=== PATIENT | female | born 1995 | race Caucasian/White ===

== ENCOUNTER 2017-03-20 19:22 | Emergency (ER) | payer OTHER ==
[~2017-03-20] VITALS: Ht 170.2 cm; Wt 99.8 kg
--- NOTE | ~2017-03-20 | CR20 ---
[facility] A Service of [facility] & [facility] RADIOLOGY TEXT RESULTS PATIENT: VIRIDIANA BORJAS LOCATION: SED : [birth year] UNIT #: [id number] AGE: [address]: Betsey Eugene SEX: F ORDER DR: [id number] [address] [address] [id number] E MR#: [id number] Acc #: [id number] NAME: VIRIDIANA BORJAS : 1995 SEX: F STUDY DATE/TIME: 03/20/2017 20:35 UNIT: SED ROOM: STUDY DESCRIPTION: CR Ankle Min 3 Views Lt Attending Physician: Betsey Eugene Pa-C Ordering Physician: Francheska Osborn M.D. Primary Care Physician: Artur Duval M.D. MEDICAL IMAGING REPORT This report is preliminary unless electronic signature is present. EXAM Left ankle, 3 views. HISTORY Ankle pain after fall today. FINDINGS AP, lateral, and oblique projections of the ankle show satisfactory integrity of the joint mortise with a smooth articular surface. There is no identifiable fracture, dislocation, or radiopaque foreign body. IMPRESSION Normal ankle. Dictated by... Sean Shah M.D. THIS IS AN ELECTRONICALLY VERIFIED REPORT Sean Shah M.D. at 03/21/2017 11:37 PM DFL/vaughn TD: 03/21/2017 12:38 JOB #: [id number] MEDICAL IMAGING REPORT Page 1 of 1
[~2017-03-20 19:22] MED LIST: ACETAMINOPHEN PO; ALBUTEROL17 GM INH; AMOXICILLIN PO; AMOXICILLIN500 M1 PO; AUGMENTIN 250-150 ML PO; BACTRIM DS TABL1 TAB PO; BENTYL10 MG PO; BENZONATATE PO; CIPRO PO; DARVOCET-N 1001 TAB PO; DIFLUNISAL500 MG PO; DITROPAN5 MG PO; FLAGYL PO; IRON PO; LORTAB 5/500 TA1 TA2 PO; MELATONIN3 MG PO; NAPROSYN500 MG PO; NO MEDICATIONS; NORCO 5/325 TAB1 TAB PO; PERCOCET 7.5/321 TAB PO; PREDNISONE PO; PRENATAL VITAMI1 TA3 PO; PYRIDIUM PO; PYRIDIUM100 MG PO; TUSSIN MAX15 MG/5 M1 PO; TYLENOL #3 PO; ZITHROMAX PO; ZITHROMAX1 G/PKT PO; ZOFRAN ODT4 MG PO; ZOFRAN PO; ZYRTEC PO
== END 2017-03-20 22:02 | disposition home or self-care (01) ==
LOC: SED 19:22
DX: S93.402A Sprain of unspecified ligament of left ankle, initial encounter (principal); J45.909 Unspecified asthma, uncomplicated; F17.200 Nicotine dependence, unspecified, uncomplicated; Z23 Encounter for immunization; X50.1XXA Overexertion from prolonged static or awkward postures, initial encounter; Y92.009 Unspecified place in unspecified non-institutional (private) residence as the place of occurrence of the external cause
CPT/HCPCS: 29540; 73610; 90471; 90715; 99283